=== PATIENT | male | born 1975 | race Hispanic/Latino ===

== ENCOUNTER 2024-12-10 14:56 | Inpatient (IN) | payer OTHER ==
[~2024-12-10] VITALS: Ht 167.6 cm; Wt 102.5 kg
[2024-12-10] VITALS (24 sets, daily range): BP systolic 131–199; BP diastolic 69–90; PULSE 84–100; RESP 14–23; TEMP 97.7–98.8; O2SAT 92–97
[2024-12-10] MEDS: FUROSEMIDE INJ 10 MG/ML 4 ML VIAL IV ONE (15:26)
[2024-12-10] MEDS: NITROGLYCERIN 2% OINT 1 GM PKT TOP ONE (15:27)
[2024-12-10 15:28] LABS: BASOPHILS % 0.4 % (0.0-1.0); EOSINOPHILS # (AUTO) 0.1 (0.0-0.4); EOSINOPHILS % 1.1 % (0.0-6.0); HEMATOCRIT 36.4 % (38.2-49.6); HEMOGLOBIN 11.1 g/dL (14.0-18.0); LYMPHOCYTES # (AUTO) 1.5 (1.0-3.2); LYMPHOCYTES % 17.5 % (18.0-39.1); MEAN CORPUSCULAR HEMOGLOBIN 31.4 pg (28-32); MEAN CORPUSCULAR HGB CONC 30.5 g/dL (31-35); MEAN CORPUSCULAR VOLUME 102.8 fL (81-99); MONOCYTES # (AUTO) 0.5 (0.2-0.8); MONOCYTES % 5.8 % (4.4-11.3); NEUTROPHILS # (AUTO) 6.2 (2.1-6.9); PLATELET COUNT 204 x10e3/uL (140-360); RED BLOOD COUNT 3.54 x10e6/uL (4.3-5.7); RED CELL DISTRIBUTION WIDTH 13.8 % (11.7-14.4)
[2024-12-10 15:42] LABS: ALBUMIN 2.3 g/dL (3.5-5.0); ALBUMIN/GLOBULIN RATIO 0.5 (0.8-2.0); BILIRUBIN,TOTAL 0.3 mg/dL (0.2-1.2); CALCIUM 8.3 mg/dL (8.4-10.2); CREATININE, SERUM 6.33 mg/dL (0.72-1.25); TOTAL PROTEIN 7.2 g/dL (6.5-8.1)
[2024-12-10] MEDS: NICARDIPINE 20MG/200ML PREMIX 200 ML IV SCH ×2 (16:37→20:15)
[2024-12-10] MEDS ORDERED: DEXTROSE 50% SYRINGE 50 ML IV PRN (20:15)
[2024-12-10] MEDS ORDERED: GUAIFENESIN/DEXTROMETHORPHAN LIQD 5 ML UDC PO PRN (20:15)
[2024-12-10] MEDS ORDERED: DOCUSATE SODIUM 100 MG CAP PO PRN (20:15)
[2024-12-10] MEDS ORDERED: ONDANSETRON HCL INJ 2MG/ML 2ML 2 MG/ML VIAL IV PRN (20:15)
[2024-12-10] MEDS ORDERED: MELATONIN 3 MG TAB PO PRN (20:15)
[2024-12-10] MEDS: INSULIN REGULAR, HUMAN 100 UNIT/1 ML SQ SCH (20:37)
[2024-12-11] VITALS (90 sets, daily range): BP systolic 100–176; BP diastolic 55–101; PULSE 59–94; RESP 12–25; TEMP 97.1–98; O2SAT 86–100
[2024-12-11 06:46] LABS: BASOPHILS % 0.5 % (0.0-1.0); EOSINOPHILS # (AUTO) 0.2 (0.0-0.4); EOSINOPHILS % 2.3 % (0.0-6.0); HEMATOCRIT 31.2 % (38.2-49.6); HEMOGLOBIN 10.2 g/dL (14.0-18.0); LYMPHOCYTES # (AUTO) 1.4 (1.0-3.2); MEAN CORPUSCULAR HEMOGLOBIN 31.7 pg (28-32); MEAN CORPUSCULAR HGB CONC 32.7 g/dL (31-35); MEAN CORPUSCULAR VOLUME 96.9 fL (81-99); MONOCYTES # (AUTO) 0.7 (0.2-0.8); MONOCYTES % 8.4 % (4.4-11.3); NEUTROPHILS # (AUTO) 5.6 (2.1-6.9); NEUTROPHILS % 70.5 % (38.7-80.0); PLATELET COUNT 224 x10e3/uL (140-360); RED BLOOD COUNT 3.22 x10e6/uL (4.3-5.7); RED CELL DISTRIBUTION WIDTH 13.9 % (11.7-14.4); WHITE BLOOD COUNT 7.87 x10e3/uL (4.8-10.8)
[2024-12-11 07:03] LABS: ANION GAP 18.5 mmol/L (8-16); CALCIUM 8.2 mg/dL (8.4-10.2); CREATININE, SERUM 6.24 mg/dL (0.72-1.25); POTASSIUM 4.5 mmol/L (3.5-5.1)
[2024-12-11] MEDS: FOLIC ACID/CYANOCOB/PYRIDOXINE TAB PO SCH (10:19)
[2024-12-11] MEDS: THIAMINE HCL 100 MG TAB PO SCH (10:19)
[2024-12-11] MEDS ORDERED: LIDOCAINE HCL 1% 30ML-PF VIAL ONE (11:00)
[2024-12-11] MEDS ORDERED: SODIUM CHLORIDE 0.9% 500ML 500 ML ONE (11:00)
[2024-12-11] MEDS: NIFEDIPINE CR 30 MG TAB PO SCH (11:09)
[2024-12-11] MEDS: CARVEDILOL 12.5 MG TAB PO SCH (11:10)
[2024-12-11] MEDS ORDERED: SODIUM CHLORIDE 0.9% 250ML 250 ML ONE (11:20)
[2024-12-11] MEDS ORDERED: CEFTRIAXONE 1 GM VIAL ONE (11:20)
[2024-12-11] MEDS ORDERED: FENTANYL CITRATE/PF 100MCG/2 ML INJ ONE (11:20)
[2024-12-11] MEDS ORDERED: HEPARIN SOD (PORCINE) 1000 UNIT/ML SDV ONE (11:51)
[2024-12-11 11:59] LABS: PROTHROMBIN TIME 13.8 seconds (11.9-14.5)
[2024-12-11] MEDS ORDERED: MANNITOL 25% 12.5GM/50 ML VIAL IV PRN (16:15)
[2024-12-11] MEDS ORDERED: ALBUMIN 25% 12.5GM 0.25 GM/ML BTL IV PRN (16:15)
[2024-12-11] MEDS ORDERED: HEPARIN SOD (PORCINE) 1000 UNIT/ML SDV IV PRN (16:15)
[2024-12-11] MEDS ORDERED: SODIUM CHLORIDE 0.9% 1000ML 1,000 ML IV PRN (16:15)
[2024-12-11] MEDS: SODIUM BICARBONATE 650 MG TAB PO SCH (17:05)
[2024-12-12] VITALS (37 sets, daily range): BP systolic 123–141; BP diastolic 67–78; PULSE 59–75; RESP 14–23; TEMP 98–98.4; O2SAT 92–100
[2024-12-12 08:11] LABS: BASOPHILS % 0.5 % (0.0-1.0); EOSINOPHILS # (AUTO) 0.2 (0.0-0.4); HEMATOCRIT 29.3 % (38.2-49.6); HEMOGLOBIN 9.7 g/dL (14.0-18.0); LYMPHOCYTES # (AUTO) 1.5 (1.0-3.2); LYMPHOCYTES % 19.3 % (18.0-39.1); MEAN CORPUSCULAR HEMOGLOBIN 31.9 pg (28-32); MEAN CORPUSCULAR HGB CONC 33.1 g/dL (31-35); MEAN CORPUSCULAR VOLUME 96.4 fL (81-99); MONOCYTES # (AUTO) 0.7 (0.2-0.8); MONOCYTES % 8.9 % (4.4-11.3); NEUTROPHILS # (AUTO) 5.2 (2.1-6.9); PLATELET COUNT 226 x10e3/uL (140-360); RED BLOOD COUNT 3.04 x10e6/uL (4.3-5.7); RED CELL DISTRIBUTION WIDTH 13.9 % (11.7-14.4); WHITE BLOOD COUNT 7.66 x10e3/uL (4.8-10.8)
[2024-12-12 08:27] LABS: MAGNESIUM 1.9 MG/DL (1.3-2.1); PHOSPHORUS 5.9 MG/DL (2.3-4.7)
[2024-12-12 08:30] LABS: ALBUMIN/GLOBULIN RATIO 0.5 (0.8-2.0); BILIRUBIN,TOTAL 0.2 mg/dL (0.2-1.2); CALCIUM 8.1 mg/dL (8.4-10.2); CREATININE, SERUM 5.61 mg/dL (0.72-1.25); TOTAL PROTEIN 6.1 g/dL (6.5-8.1)
[2024-12-13] VITALS (11 sets, daily range): BP systolic 116–149; BP diastolic 71–90; PULSE 62–87; RESP 15–21; TEMP 97.6–98.3; O2SAT 90–100
[2024-12-13 07:05] LABS: BASOPHILS % 0.5 % (0.0-1.0); EOSINOPHILS # (AUTO) 0.2 (0.0-0.4); EOSINOPHILS % 1.9 % (0.0-6.0); HEMATOCRIT 32.9 % (38.2-49.6); HEMOGLOBIN 10.2 g/dL (14.0-18.0); MEAN CORPUSCULAR HEMOGLOBIN 31.8 pg (28-32); MEAN CORPUSCULAR VOLUME 102.5 fL (81-99); MONOCYTES # (AUTO) 0.8 (0.2-0.8); MONOCYTES % 10.2 % (4.4-11.3); NEUTROPHILS # (AUTO) 4.9 (2.1-6.9); PLATELET COUNT 194 x10e3/uL (140-360); RED BLOOD COUNT 3.21 x10e6/uL (4.3-5.7); RED CELL DISTRIBUTION WIDTH 13.3 % (11.7-14.4); WHITE BLOOD COUNT 7.93 x10e3/uL (4.8-10.8)
[2024-12-13 07:37] LABS: ALBUMIN 2.1 g/dL (3.5-5.0); ALBUMIN/GLOBULIN RATIO 0.5 (0.8-2.0); ANION GAP 12.8 mmol/L (8-16); BILIRUBIN,TOTAL 0.2 mg/dL (0.2-1.2); CALCIUM 8.3 mg/dL (8.4-10.2); CREATININE, SERUM 5.26 mg/dL (0.72-1.25); POTASSIUM 3.8 mmol/L (3.5-5.1); TOTAL PROTEIN 6.3 g/dL (6.5-8.1)
[2024-12-13 12:23] LABS: HEPATITIS B CORE AB TOTAL NEGATIVE; HEPATITIS B SURFACE AG (P) NEGATIVE
[2024-12-13 12:24] LABS: HEPATITIS B SURFACE AB QUANT 7.5
[2024-12-14] VITALS (10 sets, daily range): BP systolic 125–145; BP diastolic 67–89; PULSE 63–68; RESP 16–20; TEMP 97.9–99; O2SAT 94–100
[2024-12-14 10:46] LABS: CALCIUM 7.7 mg/dL (8.4-10.2); CREATININE, SERUM 6.6 mg/dL (0.72-1.25)
[2024-12-14] MEDS: FUROSEMIDE 40 MG TAB PO SCH (18:00)
[2024-12-15] VITALS: BP 143/99; PULSE 72; RESP 18; TEMP 97.5; O2SAT 99
[2024-12-15] MEDS: ACETAMINOPHEN 325 MG TAB PO PRN (00:27)
[2024-12-15 05:28] VITALS: BP 119/76; PULSE 64; RESP 20; TEMP 97.9; O2SAT 99
[2024-12-15 07:36] VITALS: PULSE 69; RESP 18; O2SAT 97
[2024-12-15 08:00] VITALS: BP 157/79; PULSE 69; RESP 19; TEMP 97.9; O2SAT 98
[2024-12-15 08:49] VITALS: BP 157/79; PULSE 69
[2024-12-15 09:25] LABS: CALCIUM 7.9 mg/dL (8.4-10.2); CREATININE, SERUM 4.82 mg/dL (0.72-1.25)
[2024-12-15] MEDS ORDERED: Folic Acid/Cyanocob/Pyridoxine PO (10:11)
[2024-12-15] MEDS ORDERED: FUROSEMIDE40 MG PO (10:11)
[2024-12-15] MEDS ORDERED: COREG12.5 MG PO (10:11)
[2024-12-15] MEDS ORDERED: B-1100 MG PO (10:11)
[2024-12-15] MEDS ORDERED: NIFEDIPINE ER30 M1 PO (10:11)
[2024-12-15] MEDS ORDERED: CARVEDILOL 12.5 MG TAB PO SCH (17:00)
== END 2024-12-15 14:14 | disposition home or self-care (01) | DRG 674 ==
LOC: ER 15:02 → ERHOLD 15:58 → ICU 18:11 → MED/SURG2 12-13 06:00
PROVIDERS: ADMIT Internal Medicine; ATTEND Internal Medicine
PROC: 0JH63XZ Insertion of Tunneled Vascular Access Device into Chest Subcutaneous Tissue and Fascia, Percutaneous Approach (ICD-10-PCS; principal; 2024-12-11)
PROC: 02H633Z Insertion of Infusion Device into Right Atrium, Percutaneous Approach (ICD-10-PCS; 2024-12-11)
PROC: 5A1D70Z Performance of Urinary Filtration, Intermittent, Less than 6 Hours Per Day (ICD-10-PCS; 2024-12-11)
DX: I12.0 Hypertensive chronic kidney disease with stage 5 chronic kidney disease or end stage renal disease (principal); E87.20 Acidosis, unspecified; J90 Pleural effusion, not elsewhere classified; I16.1 Hypertensive emergency; N17.9 Acute kidney failure, unspecified; E11.22 Type 2 diabetes mellitus with diabetic chronic kidney disease; N18.6 End stage renal disease; E87.79 Other fluid overload; I16.0 Hypertensive urgency; F10.10 Alcohol abuse, uncomplicated; T46.5X6A Underdosing of other antihypertensive drugs, initial encounter; E66.9 Obesity, unspecified; Z68.37 Body mass index [BMI] 37.0-37.9, adult; Z91.128 Patient's intentional underdosing of medication regimen for other reason
CPT/HCPCS: 36415; 36558; 71046; 74470; 76770; 76937; 77001; 80048; 80053; 82948; 83735; 83880; 84100; 84484; 85025; 85610; 86704; 86706; 87340; 90962; 93005; 93306; 94799; 96372; 99252; 99284; J0696; J1644; J1940; J2003; J2150; J3411; J7030; J7040; J7050